=== PATIENT | male | born 1980 | race Caucasian/White ===

== ENCOUNTER 2019-08-31 23:12 | Emergency (ER) | payer SELFPAY ==
[~2019-08-31] VITALS: Ht 165.1 cm; Wt 69.0 kg
[2019-09-01 00:08] LABS: HEMATOCRIT. 24.4 % (42.0-52.0); HEMOGLOBIN. 7.7 g/dL (14.0-18.0); MEAN CORPUSCULAR HEMOGLOBIN 23.1 pg (28.0-32.0); MEAN CORPUSCULAR VOLUME 73.4 fL (80.0-94.0); MEAN PLATELET VOLUME 7.4 fl (7.4-10.4); PLATELET 146 x1000/uL (130-400); RED BLOOD CELL COUNT 3.33 mill/uL (4.7-6.1); RED CELL DISTRIBUTION WIDTH 20.8 % (11.6-14.6)
[2019-09-01 00:14] LABS: CHLORIDE 105 mEq/L (98-107)
[2019-09-01 00:23] LABS: CLARITY URINE CLEAR (CLEAR); COLOR URINE YELLOW (YELLOW); KETONES URINE NEGATIVE (NEGATIVE); LEUKOCYTE ESTERASE URINE NEGATIVE (NEGATIVE); NITRITE URINE NEGATIVE (NEGATIVE); OCCULT BLOOD URINE NEGATIVE (NEGATIVE); PROTEIN URINE NEGATIVE (NEGATIVE); SPECIFIC GRAVITY URINE 1.003 (1.005-1.030); UROBILINOGEN URINE 0.2 E.U./dL (0.2-1.0)
[2019-09-01 00:34] LABS: *BARBITURATES SCREEN URINE NEGATIVE (NEGATIVE); *BENZODIAZEPINES SCREEN URINE NEGATIVE (NEGATIVE); *COCAINE SCREEN URINE NEGATIVE (NEGATIVE)
[2019-09-01 00:35] LABS: *AMPHETAMINES SCREEN URINE NEGATIVE (NEGATIVE); METHADONE URINE SCREEN NEGATIVE (NEGATIVE); OPIATES URINE SCREEN NEGATIVE (NEGATIVE); PHENCYCLIDINE URINE SCREEN NEGATIVE (NEGATIVE)
[2019-09-01 00:37] LABS: CANNABINOID URINE SCREEN NEGATIVE (NEGATIVE)
[2019-09-01 00:39] LABS: PLATELET ESTIMATE NORMAL
[2019-09-01 00:45] LABS: ETHANOL BLOOD 301 mg/dL
[2019-09-01 02:27] VITALS: BP 111/66
== END 2019-09-01 02:32 | disposition home or self-care (01) ==
LOC: EDBD 23:55 → ER 23:55
DX: F10.129 Alcohol abuse with intoxication, unspecified (principal); Y90.8 Blood alcohol level of 240 mg/100 ml or more; E78.00 Pure hypercholesterolemia, unspecified; R53.1 Weakness; D64.9 Anemia, unspecified
CPT/HCPCS: 36415; 80305; 80320; 81003; 82962; 99283; G0480

== ENCOUNTER 2020-06-27 21:15 | Emergency (ER) | payer MEDICAID ==
[~2020-06-27] VITALS: Ht 175.3 cm; Wt 73.0 kg
[2020-06-27] MEDS ORDERED: KETOROLAC 60MG/2ML VIAL IM STA (22:11)
[2020-06-27 23:43] VITALS: BP 120/79
== END 2020-06-27 23:45 | disposition home or self-care (01) ==
LOC: ER 21:23
DX: M79.672 Pain in left foot (principal); S92.302S Fracture of unspecified metatarsal bone(s), left foot, sequela; X58.XXXS Exposure to other specified factors, sequela
CPT/HCPCS: 73630; 96372; 99283; J1885; Z7610